=== PATIENT | male | born 2005 | race African-American/Black ===

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

== ENCOUNTER 2024-03-02 05:33 | Emergency (ER) | payer MEDICAID ==
[~2024-03-02] VITALS: Ht 175.3 cm; Wt 78.0 kg
[~2024-03-02 05:33] MED LIST: ALBU18HF2 IH
[2024-03-02 06:00] VITALS: BP 139/90; PULSE 79; RESP 18; TEMP 98; O2SAT 100
[2024-03-02] MEDS: CEFTRIAXONE SODIUM 500MG VIAL IM ONE (07:15)
[2024-03-02] MEDS: AZITHROMYCIN 500 MG TABLET PO ONE (07:15)
[2024-03-02 07:31] LABS: CLARITY URINE CLEAR (CLEAR); COLOR URINE YELLOW (YELLOW); GLUCOSE URINE NEGATIVE (NEGATIVE); KETONES URINE NEGATIVE (NEGATIVE); LEUKOCYTE ESTERASE URINE NEGATIVE (NEGATIVE); NITRITE URINE NEGATIVE (NEGATIVE); OCCULT BLOOD URINE NEGATIVE (NEGATIVE); PROTEIN URINE NEGATIVE (NEGATIVE); SPECIFIC GRAVITY URINE 1.012 (1.005-1.030)
== END 2024-03-02 08:00 | disposition home or self-care (01) ==
LOC: ER 05:43
DX: Z20.2 Contact with and (suspected) exposure to infections with a predominantly sexual mode of transmission (principal)
CPT/HCPCS: 81003; 99283

== ENCOUNTER 2024-12-12 23:36 | Emergency (ER) | payer MEDICAID ==
[~2024-12-12] VITALS: Ht 177.8 cm; Wt 73.0 kg
[2024-12-12 23:43] VITALS: TEMP 36.7
[2024-12-13] MEDS: MORPHINE SULFATE 4 MG/ML INJ (FOR IV/IM USE) IV STA (00:51)
[2024-12-13] MEDS: PROPOFOL 200MG/20ML VIAL IV ONE (01:33)
[2024-12-13] MEDS ORDERED: NAPR-681 MT (02:27)
[2024-12-13 03:19] VITALS: O2SAT 99
[2024-12-13 09:22] VITALS: BP 136/73; PULSE 73; RESP 18; TEMP 98.6; O2SAT 100
== END 2024-12-13 03:58 | disposition home or self-care (01) ==
LOC: ER 23:36
DX: S43.004A Unspecified dislocation of right shoulder joint, initial encounter (principal); Y04.0XXA Assault by unarmed brawl or fight, initial encounter; Y93.89 Activity, other specified; Y92.89 Other specified places as the place of occurrence of the external cause; Y99.8 Other external cause status
CPT/HCPCS: 73030 ×2; 23650; 99152; 99285; 96374; J2704; J2270; Z7610